=== PATIENT | female | born 2000 | race African-American/Black ===

== ENCOUNTER 2021-04-03 04:10 | Outpatient (CLI) | payer OTHER ==
--- NOTE | 2021-04-03 08:27 | Ultrasound Report ---
PROCEDURE: OB First Trimester INDICATIONS: POSITIVE TEST OUTSIDE/PRIOR DATING DATA: Last menstrual period (LMP): 01/23/2021. LMP-based estimated date of delivery (KATHY): 10/30/2021. First dating scan (date and location): 04/03/2021. Estimated date of delivery (KATHY) from first dating scan: 10/30/2021. The below data below was generated using the KATHY of 10/30/2021. TECHNIQUE: Real-time scanning was performed of the fetus and maternal pelvic organs, with image documentation. COMPARISON: None. FINDINGS: Embryo: Intrauterine is seen with gestational sac, yolk sac, and pole. The crown-rum p length is 3.08 cm, consistent with an estimated gestational age of 10 weeks 0 days. Heart rate: 169 bpm. Measurement variability in dating: +/- 4 weeks by LMP, +/- 7 days by mean sac diameter (use before 6 weeks gestation if crown-rump length not able to be measured), +/- 5 days by crown-rump length (6-12 weeks gestation). Maternal organs: The visualized portions of the ovaries are within normal limits. The cervix is close d. IMPRESSION: Single live intrauterine with estimated gestational age of 10 weeks 0 days, giving an ultra sound KATHY of 10/30/2021. Reviewed by: Stuart Wyatt MD on 04/03/2021 8:25 AM PST Approved by: Stuart Wyatt MD on 04/03/2021 8:25 AM PST Station ID: [id number]
== END 2021-04-03 04:11 | disposition home or self-care (01) ==
LOC: DI 04:10
PROVIDERS: ATTEND Nurse Practitioner Obstetrics & Gynecology
DX: Z32.01 Encounter for pregnancy test, result positive (principal); Z11.3 Encounter for screening for infections with a predominantly sexual mode of transmission
CPT/HCPCS: 87491; 87591; 87661

== ENCOUNTER 2021-04-03 08:00 | Outpatient (CLI) | payer OTHER ==
[2021-04-03 23:01] LABS: CHLAMYDIA TRACHOMATIS DNA NEGATIVE (NEGATIVE); NEISSERIA GONORRHOEAE DNA NEGATIVE (NEGATIVE); TRICHOMONAS VAGINALIS DNA NEGATIVE (NEGATIVE)
== END 2021-04-03 23:59 ==
LOC: LAB 08:00
PROVIDERS: ATTEND Nurse Practitioner Obstetrics & Gynecology
DX: Z11.3 Encounter for screening for infections with a predominantly sexual mode of transmission (principal)
CPT/HCPCS: 87491; 87591; 87661

== ENCOUNTER 2021-05-12 11:11 | Outpatient (CLI) | payer OTHER | END 2021-05-12 11:12 | disposition home or self-care (01) | LOC: LAB 11:11 | PROVIDERS: ATTEND Nurse Practitioner Obstetrics & Gynecology | DX: Z36.8A Encounter for antenatal screening for other genetic defects (principal) | CPT/HCPCS: 36415; 81511; 81599; 85025; 86592; 86762; 86787; 86803; 86850; 86900; 86901; 87340; 87389 ==

== ENCOUNTER 2021-06-06 15:52 | Outpatient (CLI) | payer OTHER ==
[2021-06-06 16:12] LABS: BASOPHILS % (AUTO) 0.3 %; EOSINOPHILS # (AUTO) 0.1 10^3/uL (0.0-0.7); EOSINOPHILS % (AUTO) 0.5 %; HCT - HEMATOCRIT 32.4 % (37.0-47.0); HGB - HEMOGLOBIN 10.8 g/dL (12.0-16.0); LYMPHOCYTES # (AUTO) 2.7 10^3/uL (1.5-3.5); LYMPHOCYTES % (AUTO) 27.7 %; MEAN CORPUSCULAR HEMOGLOBIN 27.6 pg (27.0-31.0); MEAN CORPUSCULAR HGB CONC 33.3 g/dL (32.0-36.0); MEAN CORPUSCULAR VOLUME 82.9 fL (81.0-99.0); MEAN PLATELET VOLUME 10.5 fL (7.9-10.8); MONOCYTES # (AUTO) 0.7 10^3/uL (0.0-1.0); MONOCYTES % (AUTO) 7.6 %; NEUTROPHILS # (AUTO) 6.2 10^3/uL (1.5-6.6); NEUTROPHILS % (AUTO) 63.6 %; PLT - PLATELET COUNT 262 10^3/uL (130-450); RED BLOOD COUNT 3.91 10^6/uL (4.20-5.40); RED CELL DISTRIBUTION WIDTH 14.6 % (12.0-15.0); WHITE BLOOD COUNT 9.8 x10^3/uL (4.8-10.8)
[2021-06-07 09:56] LABS: HEPATITIS B SURFACE ANTIGEN NON-REACTIVE (NON-REACTIVE); HEPATITIS C ANTIBODY NON-REACTIVE (NON-REACTIVE)
[2021-06-07 11:56] LABS: AFP MOM 1.73; AGE RISK DOWN SYNDROME 1 IN 1124; CALC'D GESTATIONAL AGE 19.1 weeks; CIGARETTE SMOKER? NOT GIVEN; DONOR AGE: EGG RETRIEVAL NOT GIVEN; DONOR EGG NO; ESTRIOL MOM 1.31; HCG MOM 1.26; HX OF NEURAL TUBE DEFECTS NO; INHIBIN A MOM 0.88; INSULIN DEPEND DIABETIC NO; MATERNAL WEIGHT 178 lbs; MSS DOWN SYNDROME RISK <1 IN 5000; MSS3 TRISOMY 18 RISK <1 IN 5000; NUMBER OF FETUSES 1; PREV PREGNANCY DOWN SYND NO; RISK FOR ONTD 1 IN 1340
[2021-06-07 13:05] LABS: HIV AG/AB 4TH GEN NON-REACTIVE (NON-REACTIVE)
== END 2021-06-06 15:53 | disposition home or self-care (01) ==
LOC: LAB 15:52
PROVIDERS: ATTEND Nurse Practitioner Obstetrics & Gynecology
DX: Z36.89 Encounter for other specified antenatal screening (principal); Z36.8A Encounter for antenatal screening for other genetic defects
CPT/HCPCS: 36415; 81511; 85025; 86592; 86762; 86787; 86803; 86850; 86900; 86901; 87340; 87389

== ENCOUNTER 2021-06-14 12:50 | Outpatient (CLI) | payer OTHER ==
--- NOTE | 2021-06-14 17:06 | Ultrasound Report ---
PROCEDURE: OB Detailed Eval INDICATIONS: SUPERVISION OF PREGNACY OUTSIDE/PRIOR DATING DATA: Last menstrual period (LMP): 01/23/2021. LMP-based estimated date of delivery (KATHY): 10/30/2021. First dating scan (date and location): 04/03/2021. Estimated date of delivery (KATHY) from first dating scan: 10/30/2021. The below data below was generated using the ultrasound KATHY of 10/30/2021 TECHNIQUE: Real-time scanning was performed of the fetus, with image documentation and biometric measurements. Endovaginal scanning: Not performed. COMPARISON: OB ultrasound, 04/03/2021. FINDINGS: General: A single living intrauterine gestation is present. Presentation: Breech Placenta: Placental position is anterior, without previa. Amniotic fluid index: 15.0 cm; largest pocket 4.7 cm. heart rate: 153 beats per minute. Maternal cervical canal: 5.5 cm long; normal length is 2.5 cm or more. There is trace amount of flu id in the endocervical canal. biometrics: Biparietal diameter: 20 weeks 3 days Head circumference: 20 weeks 6 days Abdominal circumference: 20 weeks 6 days Femur length: 20 weeks 1 day Estimated gestational age from initial scan: 20 weeks 2 days. Composite gestational age from present scan: 20 weeks 3 days Estimated weight and percentile: 362.2 g; 61.4% Measurement variability in biometric dating: +/- 10 days from 12-20 weeks gestation, +/- 2 weeks from 20-30 weeks gestation, +/- 3 weeks at 30 weeks gestation or later. Anatomic survey: Neuro: Ventricles are normal at less than 10 mm. Cisterna magna is normal at 3-11 mm. Cerebellum i s normal in size and morphology. Nuchal skin fold: Normal at less than 6 mm between 14 and 20 weeks gestational age. Face: Nose and lips are normal. Facial profile not well seen. Spine: No evidence for spina bifida. Heart: 4-chambered heart is present, with normal ventricular outflow tracts. Diaphragm: Diaphragm is intact. Stomach: Left-sided stomach is present. Kidneys: No hydronephrosis. Normal is less than 5 mm in 2nd trimester, less than 7 mm in 3rd trimester. Cord: 3 vessel cord has orthotopic insertion. Bladder: Normal in size. Extremities: All 4 extremities are visualized. IMPRESSION: 1. A single living IUP with appropriate interval growth. 2. facial profile is not well seen. Otherwise normal anatomic survey. Follow-up imaging s uggested. 3. Trace amount of fluid in the endocervical canal. Cervix is normal in length. Reviewed by: Aaron Weldon MD on 06/14/2021 5:05 PM PDT Approved by: Aaron Weldon MD on 06/14/2021 5:05 PM PDT Station ID: [id number]
== END 2021-06-14 12:51 | disposition home or self-care (01) ==
LOC: DI 12:50
PROVIDERS: ATTEND Nurse Practitioner Obstetrics & Gynecology
DX: Z34.02 Encounter for supervision of normal first pregnancy, second trimester (principal); Z36.8A Encounter for antenatal screening for other genetic defects

== ENCOUNTER 2021-06-21 15:00 | Outpatient (CLI) | payer OTHER ==
--- NOTE | 2021-06-22 16:00 | Ultrasound Report ---
PROCEDURE: OB F/U or Repeat INDICATIONS: SUPERVISION OF OUTSIDE/PRIOR DATING DATA: Last menstrual period (LMP): 01/23/2021. LMP-based estimated date of delivery (KATHY): 10/30/2021. First dating scan (date and location): 04/03/2021. Estimated date of delivery (KATHY) from first dating scan: 10/30/2021. The below data below was generated using the ultrasound KATHY of 10/30/2021 TECHNIQUE: Real-time scanning was performed of the fetus, with image documentation and biometric measurements. COMPARISON: OB ultrasound 06/14/2020, 04/03/2021 FINDINGS: General: A single living intrauterine gestation is present. Presentation: Vertex Placenta: Placental position is anterior, without previa. Amniotic fluid index: 12 cm, within normal limits for gestational age. Largest pocket 3.6 cm heart rate: 147 beats per minute. Maternal cervical canal: 3.8 cm long; normal length is 2.5 cm or more. biometrics: Estimated gestational age from initial scan: 21 weeks 2 days Other: profile is within normal limits. IMPRESSION: Single live intrauterine with ultrasound gestational age of 21 weeks 2 days. profile is within normal limits. Reviewed by: Catrina Denney MD on 06/22/2021 3:59 PM PDT Approved by: Catrina Denney MD on 06/22/2021 3:59 PM PDT Station ID: [id number]
== END 2021-06-21 15:01 | disposition home or self-care (01) ==
LOC: DI 15:00
PROVIDERS: ATTEND Nurse Practitioner Obstetrics & Gynecology
DX: Z34.02 Encounter for supervision of normal first pregnancy, second trimester (principal); Z3A.21 21 weeks gestation of pregnancy; Z36.89 Encounter for other specified antenatal screening